=== PATIENT | male | born 1965 | race Caucasian/White ===

== ENCOUNTER 2019-03-16 23:38 | Emergency (ER) | payer MEDICAID ==
[~2019-03-16] VITALS: Ht 175.3 cm; Wt 68.0 kg
[2019-03-16 23:41] VITALS: BP 133/81
--- NOTE | 2019-03-16 23:43 | NUR ---
PT BHAVYA BLS TO ER BED 08
--- NOTE | 2019-03-16 23:45 | NUR ---
PT BIBA C/O HEADACHE X ALL DAY. PT STATES UN PROVOKED H/A ALL DAY, PAIN 7/10 PRESSURE THROUGH OUT HEAD, DENIES TRAUMA. PT DENIES N/V/D. PERRLA, CLEAR SPEECH. PT ACTING APPROPRIATLY. PT SPEAKING IN FULL SENTENCES. PMH: BI-POLAR
[2019-03-17] MEDS ORDERED: KETOROLAC 30 MG/ML VIAL IM ONE (02:15)
--- NOTE | 2019-03-17 02:20 | NUR ---
PT AWAKE AND ALERT TO VOICE, PT ACTING APPROPRIATLY. SPEECH CLEAR, PT SPEAKING IN COMPLETE SENTENCES. MEDICATION GIVEN TO PT AT THIS TIME. BREATHING EQUAL AND UNLABORED.
--- NOTE | 2019-03-17 04:00 | NUR ---
Patient discharged with v/s stable. Patient states he is ready to go home, patient states he has his own place to go but would like a sandwich; mean bag provided. Written and verbal after care instructions given and explained. Patient verbalized understanding. Ambulatory with steady gait. All questions addressed prior to discharge. Advised to follow up with PMD.
[2019-03-17 04:15] VITALS: BP 133/81
== END 2019-03-17 04:00 | disposition home or self-care (01) ==
LOC: MED 23:38
DX: R51 Headache (principal); F31.9 Bipolar disorder, unspecified
CPT/HCPCS: 70450; 96372; 99284; J1885